=== PATIENT | male | born 1965 | race Caucasian/White ===

== ENCOUNTER 2018-07-29 15:49 | Emergency (ER) | payer SELFPAY | END 2018-07-29 17:04 | disposition home or self-care (01) | LOC: E/R 15:49 | DX: S09.90XA Unspecified injury of head, initial encounter (principal); R40.2412 Glasgow coma scale score 13-15, at arrival to emergency department; V17.4XXA Pedal cycle driver injured in collision with fixed or stationary object in traffic accident, initial encounter | CPT/HCPCS: 99283 ==